=== PATIENT | male | born 1985 | race African-American/Black ===

== ENCOUNTER 2021-10-31 21:01 | Emergency (ER) | payer OTHER ==
[~2021-10-31] VITALS: Ht 180.3 cm; Wt 108.9 kg
--- NOTE | 2021-10-31 21:19 | NUR ---
BIB ambulace RA#[id number] for Seizure episode. Patient AAOX4. In no apparent distress. Came with IV VALUE ANALYST on left wrist #20G.
[2021-10-31 21:28] LABS: HEMATOCRIT 44.1 % (36.7-47.1); MEAN CORPUSCULAR HEMOGLOBIN 28.6 uug (23.8-33.4); MEAN CORPUSCULAR VOLUME 82.5 fL (73.0-96.2); PLATELET COUNT (AUTO) 155 K/uL (152-348)
[2021-10-31 21:33] LABS: CREATININE 1.1 mg/dL (0.6-1.3); POTASSIUM 3.9 mmol/L (3.5-5.1)
--- NOTE | 2021-10-31 21:49 | NUR ---
Dr. Stevens on bedside for MSE.
[2021-10-31] MEDS ORDERED: MAGNESIUM SULFATE/D5W 200 ML ONE (21:50)
[2021-10-31] MEDS ORDERED: SERT25TA PO (21:51)
[2021-10-31] MEDS ORDERED: DIVA125T2 PO (21:51)
[2021-10-31] MEDS: MAGNESIUM SULFATE/D5W 100 ML IV SCH ×3 (21:57→23:19)
[2021-10-31 23:03] LABS: *AMPHETAMINE, URINE NEGATIVE (NEGATIVE); *CANNABINOID, URINE POSITIVE (NEGATIVE); *COCCAINE, URINE POSITIVE (NEGATIVE); *OPIATE, URINE NEGATIVE (NEGATIVE); *PHENCYCLIDINE SCREEN,URINE NEGATIVE (NEGATIVE)
--- NOTE | 2021-11-01 00:18 | NUR ---
Patient discharged to home in stable condition. Written and verbal after care instructions given. Patient verbalizes understanding of instructions. Stressed follow up or return to ER for worsening s/s. Patient ambulated fr the ER with steady gait. All belongings with patient.
[2021-11-01 00:19] VITALS: BP 144/86
== END 2021-11-01 00:19 | disposition home or self-care (01) ==
LOC: ER 21:02
DX: G40.909 Epilepsy, unspecified, not intractable, without status epilepticus (principal); R94.31 Abnormal electrocardiogram [ECG] [EKG]; Z79.899 Other long term (current) drug therapy
CPT/HCPCS: 99284; 96365; 96366; 80048; 83735; 80164; 85025; 36415; 93005; 80307; J3475 ×2; A4663

== ENCOUNTER 2021-11-24 15:09 | Emergency (ER) | payer MEDICAID, OTHER ==
[~2021-11-24] VITALS: Ht 180.3 cm; Wt 108.9 kg
[~2021-11-24 15:09] MED LIST: DIVA125T2 PO; SERT25TA PO
[2021-11-24] MEDS ORDERED: ACET-2154 PO (15:25)
[2021-11-24] MEDS ORDERED: LIDO30AD10 TP (15:25)
[2021-11-24] MEDS ORDERED: BACL10TA PO (15:25)
[2021-11-24] MEDS ORDERED: ACETAMINOPHEN 325 MG TABLET ONE (15:27)
--- NOTE | 2021-11-24 15:29 | NUR ---
MD AT BEDSIDE FOR EVALUATION. MEDICATED PER MD ORDER.
[2021-11-24 15:30] VITALS: BP 132/76
[2021-11-24] MEDS ORDERED: ACETAMINOPHEN 325 MG TABLET PO ONE (15:30)
== END 2021-11-24 15:30 | disposition home or self-care (01) ==
LOC: ER 15:09
DX: M62.838 Other muscle spasm (principal); G40.909 Epilepsy, unspecified, not intractable, without status epilepticus; F32.A Depression, unspecified; Z79.899 Other long term (current) drug therapy
CPT/HCPCS: A4663